=== PATIENT | male | born 1960 | race Caucasian/White ===

== ENCOUNTER 2021-01-17 06:04 | Inpatient (IN) | payer OTHER ==
[~2021-01-17] VITALS: Ht 190.5 cm; Wt 63.5 kg
--- NOTE | 2021-01-17 06:10 | NUR ---
PATIENT BIB VIA WHEELCHAIR C/O PALPIATIONS SINCE YESTERDAY AFTERNOON. PATIENT HE DID NOT COME IN SOONER "BECAUSE I WAS BEARING DOWN TO TRY TO CONVERT IT MYSELF." PLACED IN ROOM 1A.
[2021-01-17] MEDS ORDERED: DILTIAZEM HCL 25 MG IV IV ONE (06:15)
[2021-01-17] MEDS ORDERED: IV NORMAL SALINE 1000 ML BAG IV ONE (06:15)
--- NOTE | 2021-01-17 06:15 | NUR ---
PATIENT IS NON COMPLIANT WITH RX STATING "I HAVE NOT TAKEN ANY RX FOR SEVERAL MONTHS NOW."
--- NOTE | 2021-01-17 06:25 | NUR ---
DR ABBOTT INTO EVAL PATIENT.
[2021-01-17] MEDS ORDERED: DILTIAZEM HCL 25 MG IV ONE (06:27)
[2021-01-17] MEDS ORDERED: ADENOSINE 6 MG/2 ML SYR IV ONE ×3 (06:30→06:32)
[2021-01-17 07:18] LABS: MEAN CORPUSCULAR HEMOGLOBIN 30.2 uug (23.8-33.4); MEAN CORPUSCULAR VOLUME 90.6 fL (73.0-96.2); PLATELET COUNT (AUTO) 355 K/uL (152-348)
[2021-01-17 07:22] LABS: CREATININE 1.9 mg/dL (0.6-1.3); POTASSIUM 4.9 mmol/L (3.5-5.1)
--- NOTE | 2021-01-17 08:38 | NUR ---
pt had break fast with good apetite. pt denies any pain, nausea or dizziness at this time.
--- NOTE | 2021-01-17 09:41 | NUR ---
pt'insuranceauthorized for admission observation, if any change in ot's status, insurance should be contacted. fax number [phone].
--- NOTE | 2021-01-17 09:49 | NUR ---
pt voided 300 ml. sample sent to lab
[2021-01-17] MEDS ORDERED: METOPROLOL TARTRATE 50 MG TABLET PO ONE (10:00)
--- NOTE | 2021-01-17 10:00 | NUR ---
pt's bp is increasing, pt says that he has hx of htn, but nottaking any meds for that. swapna salcedo notified.
[2021-01-17] MEDS ORDERED: METOPROLOL TARTRATE 50 MG TABLET ONE (10:02)
[2021-01-17 10:09] LABS: *BILIRUBIN,URIN NEGATIVE (NEGATIVE); *BLOOD, URINE NEGATIVE (NEGATIVE); *CLARITY,URINE CLEAR (CLEAR); *COLOR,URINE YELLOW (YELLOW); *KETONES,URINE NEGATIVE (NEGATIVE); LEUKOCYTE ESTERASE ,URINE NEGATIVE (NEGATIVE); NITRITE, URINE NEGATIVE (NEGATIVE); PH,URINE 5.5 (5.0-8.0); UGLUCOSE NEGATIVE (NEGATIVE)
[2021-01-17 10:17] LABS: *AMPHETAMINE, URINE NEGATIVE (NEGATIVE); *CANNABINOID, URINE NEGATIVE (NEGATIVE); *COCCAINE, URINE NEGATIVE (NEGATIVE); *OPIATE, URINE POSITIVE (NEGATIVE); *PHENCYCLIDINE SCREEN,URINE NEGATIVE (NEGATIVE)
[2021-01-17] MEDS ORDERED: ACETAMINOPHEN 325 MG TABLET PO PRN (10:30)
[2021-01-17] MEDS ORDERED: ONDANSETRON 4 MG/2 ML VIAL IV PRN (10:30)
[2021-01-17] MEDS ORDERED: Z GUARD REMEDY PASTE 57 GM TUBE TOP PRN (10:30)
[2021-01-17] MEDS ORDERED: MAGNESIUM HYDROXIDE 30 ML LIQUID UDC PO PRN (10:30)
--- NOTE | 2021-01-17 11:05 | NUR ---
transfered pt to floor in stable condition. pt denies any headache, nausea or cp.
[2021-01-17 11:24] VITALS: BP 167/113
--- NOTE | 2021-01-17 13:00 | NUR ---
PT alert and oriented x 4. IV on right f/a intact. PT refused to have his skin checked but states that he does not have any wounds. TELE Sinus Saul.
[2021-01-17 14:41] VITALS: BP 128/56
[2021-01-17 15:21] VITALS: BP 152/106
--- NOTE | 2021-01-17 18:00 | NUR ---
PT is in no acute distress. PT had good appetite. PT denies any c/o pain. Pt slept throughout shift. VSS. SNR@50's
--- NOTE | 2021-01-17 19:00 | NUR ---
RECEIVED PT AWAKE, ALERT AND ORIENTEDX4.. PT IN NO ACUTE DISTRESS. IV INTACT. SAFETY AND COMFORT PROVIDED. WILL CONTINUE TO MONITOR.
[2021-01-17 20:50] VITALS: BP 155/98
--- NOTE | 2021-01-17 21:00 | NUR ---
notify regarding pt blood pressure was 155/98. Dr. Stapleton ordered metoprolol succinate 25mg once a day.
[2021-01-18 00:05] VITALS: BP 155/99
[2021-01-18 04:29] VITALS: BP 156/97
--- NOTE | 2021-01-18 06:08 | NUR ---
PT SLEPT COMFORTABLY. PT IN NO ACUTE DISTRESS. IV INTACT. PT ON SINUS RHYTHM. PT REFUSED BLOOD DRAW FROM SET UP OPERATOR TOOL. . SAFETY AND COMFORT PROVIDED. ALL NEEDS ARE MET. WILL ENDORSE TO INCOMING NURSE FOR CONTINUITY OF CARE.
[2021-01-18] MEDS ORDERED: FUROSEMIDE 40 MG/4 ML VIAL IV ONE (08:15)
[2021-01-18] MEDS ORDERED: METOPROLOL SUCCINATE XL 25 MG TAB.SR.24H PO SCH (09:00)
[2021-01-18] MEDS ORDERED: ASPIRIN 81 MG TAB.CHEW PO SCH (09:00)
--- NOTE | 2021-01-18 11:00 | NUR ---
Clinical Social Work Note SW consult was requested for homelessness. Patient is a 60 year old male who is alert and oriented x4. Patient presents with a withdrawn mood and flat affect. Patient stated that he needs support with shelters since he and his are currently homeless. Patient stated that a detention in the area would be good for them. SW provided patient with homeless resources packet and provided information regarding shelters and process of accessing a bed. JOSEPH provided patient with information to [address]; [place] [address] , [facility] [address] [place] [id number] , and [address]. JOSEPH spoke with Crystal at the [facility] [phone] who stated that the patient must come in to the access center to complete an intake. Per Crystal, after intake if there is a bed available it will be offered to the patient. JOSEPH attempted to contact [facility] but they were unavailable and SW left a voicemail. Patient will be discharged today. JOSEPH had patient sign the homeless waiver.
[2021-01-18 11:37] VITALS: BP 170/114
[2021-01-18] MEDS ORDERED: ASPI81TA31 PO (13:35)
[2021-01-18] MEDS ORDERED: METO-356 PO (13:35)
[2021-01-18] MEDS ORDERED: AMLO5TAB4 PO (13:35)
--- NOTE | 2021-01-18 14:45 | NUR ---
Pt is being discharged. Pt is a/ox 3, forgetful. all personal belongings are at hand, IV removed. Pt stated that he is going to be picked up by his and is going to be living with her at her residence at [address] [place] [address] [place] [address]. Pt walked out of hospital before signing discharge papers and did not take discharge educational material and packet with him. I caught up with the , Tatiana, downstairs and she signed for the papers. I gave her the discharge instructions and she stated that she would find the pt. I called security but pt was not on hospital grounds. I personally searched every floor as well as outside but pt was nowhere to be found. Security mentioned 10 minutes later that they saw a man entering the described vehicle the came in. I called the 's number and left a message to check back if she had found him but I was not able to reach her.
[2021-01-18] MEDS ORDERED: ATORVASTATIN 40 MG TABLET PO SCH (21:00)
== END 2021-01-18 15:30 | disposition home or self-care (01) | DRG 201 ==
LOC: ER 06:07 → TELE3 10:34
PROVIDERS: ADMIT Internal Medicine; ATTEND Internal Medicine
DX: I47.1 Supraventricular tachycardia (principal); N17.0 Acute kidney failure with tubular necrosis; I50.41 Acute combined systolic (congestive) and diastolic (congestive) heart failure; I11.0 Hypertensive heart disease with heart failure; I27.20 Pulmonary hypertension, unspecified; I08.1 Rheumatic disorders of both mitral and tricuspid valves; Z59.00 Homelessness unspecified; F11.10 Opioid abuse, uncomplicated; F19.10 Other psychoactive substance abuse, uncomplicated; F17.210 Nicotine dependence, cigarettes, uncomplicated; I25.10 Atherosclerotic heart disease of native coronary artery without angina pectoris; Z91.19 Patient's noncompliance with other medical treatment and regimen; D72.829 Elevated white blood cell count, unspecified; Z53.29 Procedure and treatment not carried out because of patient's decision for other reasons
CPT/HCPCS: 36415; 70030-TC; 71045; 85025; 93005; 93307; A4663; G0378; J0153; J1940; J3490; J7030

== ENCOUNTER 2021-05-21 20:43 | Emergency (ER) | payer OTHER ==
[~2021-05-21] VITALS: Ht 188 cm; Wt 63.5 kg
[~2021-05-21 20:43] MED LIST: AMLO5TAB4 PO; ASPI81TA31 PO; METO-356 PO
--- NOTE | 2021-05-21 20:55 | NUR ---
Dr. Harris at bedside for MSE.
[2021-05-21] MEDS ORDERED: METOPROLOL TARTRATE 50 MG TABLET PO ONE (21:00)
[2021-05-21] MEDS ORDERED: AMLODIPINE 5 MG TABLET PO ONE (21:00)
[2021-05-21] MEDS ORDERED: AMLO-212 PO (21:01)
[2021-05-21] MEDS ORDERED: METO-356 PO (21:01)
--- NOTE | 2021-05-21 21:15 | NUR ---
Patient discharged to home in stable condition. Written and verbal after care instructions given. Patient verbalizes understanding of instructions. Stressed follow up or return to ER for worsening s/s. Patient out of ER with steady gait, no acute signs of distress, VSS, all belongings taken.
[2021-05-21 21:17] VITALS: BP 160/80
[2021-05-21] MEDS ORDERED: AMLODIPINE 5 MG TABLET ONE (21:20)
[2021-05-21] MEDS ORDERED: METOPROLOL TARTRATE 50 MG TABLET ONE (21:21)
== END 2021-05-21 21:19 | disposition home or self-care (01) ==
LOC: ER 20:45
DX: I10 Essential (primary) hypertension (principal); Z76.0 Encounter for issue of repeat prescription; F17.210 Nicotine dependence, cigarettes, uncomplicated
CPT/HCPCS: A4663

== ENCOUNTER 2021-06-23 13:10 | Emergency (ER) | payer OTHER ==
[~2021-06-23] VITALS: Ht 188 cm; Wt 63.5 kg
[~2021-06-23 13:10] MED LIST changes: +AMLO-212 PO
[2021-06-23] MEDS ORDERED: METO-356 PO (14:00)
[2021-06-23] MEDS ORDERED: AMLO5TAB4 PO (14:00)
--- NOTE | 2021-06-23 14:03 | NUR ---
Patient discharged to home in stable condition. Written and verbal after care instructions given. Patient verbalizes understanding of instructions. Stressed follow up or return to ER for worsening s/s.
== END 2021-06-23 14:04 | disposition home or self-care (01) ==
LOC: ER 13:10
DX: I11.0 Hypertensive heart disease with heart failure (principal); I50.22 Chronic systolic (congestive) heart failure; Z76.0 Encounter for issue of repeat prescription; F17.210 Nicotine dependence, cigarettes, uncomplicated; Z59.00 Homelessness unspecified; Z91.14 Patient's other noncompliance with medication regimen; I25.10 Atherosclerotic heart disease of native coronary artery without angina pectoris; R40.0 Somnolence
CPT/HCPCS: A4663

== ENCOUNTER 2021-11-22 17:20 | Emergency (ER) | payer SELFPAY ==
--- NOTE | 2021-11-22 19:01 | NUR ---
Patient left without being triaged.
== END 2021-11-22 19:02 | disposition left against medical advice (07) ==
LOC: ER 17:22
DX: Z53.21 Procedure and treatment not carried out due to patient leaving prior to being seen by health care provider (principal)